=== PATIENT | male | born 1935 | race Caucasian/White ===

== ENCOUNTER 2017-07-15 22:15 | Emergency (ER) | payer OTHER, MEDICARE ==
[~2017-07-15] VITALS: Ht 175.3 cm; Wt 87.8 kg
[~2017-07-15 22:15] MED LIST: ADULT LOW DOSE81 M1 PO; CALCITRIOL0.25 MC1 NG; PRINIVIL20 MG PO; SIMVASTATIN80 MG PO; TRAMADOL HCL50 MG PO; ZANAFLEX4 M1 PO; ZYLOPRIM150 MG PO
[2017-07-16 00:08] LABS: HEMATOCRIT 39.6 % (38.0-50.0); MCH 30.9 PG (29.0-34.0); MCHC 34.1 G/DL (30.0-36.0); MCV 90.6 FL (86-99); MEAN PLAT.VOLUME 10.9 uM^3 (9.0-12.4); PLATELET COUNT 157 K/uL (156-360); RBC DIS.WIDTH-CV 14.6 % (11.8-14.6); RBC DIS.WIDTH-SD 48.5 % (39-53); RED BLOOD COUNT 4.37 M/uL (4.00-5.50); WHITE BLOOD COUNT 7.2 K/uL (4.1-10.2)
[2017-07-16 00:16] LABS: PROTHROMBIN TIME 11.4 SEC (10.2-12.9)
[2017-07-16 00:18] LABS: CHLORIDE 105 mEq/L (99-109); PTT 29.3 SEC (25-37); SODIUM 137 mEq/L (136-147)
[2017-07-16 00:19] LABS: GLUCOSE 109 mg/dL (70-99)
[2017-07-16 00:21] LABS: ANION GAP 10 MEQ/L (2-14)
[2017-07-16 00:23] LABS: GFR ESTIMATE (CALCULATED) 34 mL/min/
[2017-07-16 00:24] LABS: UREA NITROGEN (BUN) 35 mg/dL (9-23)
[2017-07-16] MEDS ORDERED: PREDNISONE20 MG PO (00:47)
[2017-07-16] MEDS ORDERED: TYLENOL WITH C1 EACH PO (00:50)
[2017-07-16 01:16] VITALS: BP 131/75
== END 2017-07-16 01:17 | disposition home or self-care (01) ==
LOC: EXP 22:15 → EME 22:15 → EXP 07-16 01:17
PROVIDERS: Physician Assistant
DX: R21 Rash and other nonspecific skin eruption (principal)
CPT/HCPCS: 80048; 85027; 85610; 85730; 99281; 99284; J7512

== ENCOUNTER 2018-02-21 11:11 | Observation (INO) | payer OTHER, MEDICARE ==
[~2018-02-21] VITALS: Ht 175.3 cm; Wt 87.0 kg
[~2018-02-21 11:11] MED LIST changes: -CALCITRIOL0.25 MC1 NG; +CALCITRIOL0.25 MCG PO; +PREDNISONE20 MG PO; +TYLENOL WITH C1 EACH PO
[2018-02-21 11:37] LABS: HEMATOCRIT 43.5 % (38.0-50.0); HEMOGLOBIN 15.1 G/DL (12.5-16.6); MCH 31.1 PG (29.0-34.0); MCHC 34.7 G/DL (30.0-36.0); MCV 89.5 FL (86-99); PLATELET COUNT 176 K/uL (156-360); RBC DIS.WIDTH-CV 14.9 % (11.8-14.6); RBC DIS.WIDTH-SD 48.6 % (39-53); RED BLOOD COUNT 4.86 M/uL (4.00-5.50); WHITE BLOOD COUNT 8.2 K/uL (4.1-10.2)
[2018-02-21 11:45] LABS: CHLORIDE 107 mEq/L (99-109); POTASSIUM 3.8 mEq/L (3.7-5.4); SODIUM 144 mEq/L (136-147)
[2018-02-21 11:47] LABS: GLUCOSE 122 mg/dL (70-99)
[2018-02-21 11:51] LABS: CREATININE 1.5 mg/dL (0.6-1.3); GFR ESTIMATE (CALCULATED) 48 mL/min/ (58.99-99999)
[2018-02-21 11:52] LABS: UREA NITROGEN (BUN) 29 mg/dL (9-23)
[2018-02-21 11:58] LABS: TROP-I INTERPRETATION NEGATIVE; TROPONIN-I 0.04 ng/mL (0.0-0.30)
[2018-02-21 13:24] LABS: APPEARANCE CLEAR ((CLEAR)); BILIRUBIN NEGATIVE; BLOOD NEGATIVE; COLOR YELLOW ((YELLOW)); GLUCOSE (STRIP) NEGATIVE; KETONES NEGATIVE; LEUKOCYTES NEGATIVE; NITRITE NEGATIVE; PROTEIN (STRIP) 100; SPECIFIC GRAVITY 1.016 (1.000-1.030); UROBILINOGEN 0.2 MG/DL (0.2-1.0)
[2018-02-21 13:26] LABS: BACTERIA NONE SEEN /HPF; EPITHELIAL CELLS NONE SEEN /HPF; MUCUS TRACE /LPF; RED BLOOD CELLS 0-5 /HPF (0-5); UCUL ADDED? NO; WHITE BLOOD CELLS 0-5 /HPF (0-5)
[2018-02-21] MEDS ORDERED: ASPIRIN81 M2 PO (13:54)
[2018-02-21] MEDS ORDERED: ZYLOPRIM100 MG PO (13:54)
[2018-02-21] MEDS ORDERED: PRAVACHOL80 MG PO (13:55)
[2018-02-21] MEDS ORDERED: DIOVAN320 MG PO (13:56)
[2018-02-21] MEDS ORDERED: NORVASC5 MG PO (13:57)
[2018-02-21] MEDS ORDERED: COLCRYS0.6 MG PO (13:57)
[2018-02-21] MEDS ORDERED: HYGROTON25 MG PO (13:58)
[2018-02-21] MEDS ORDERED: PLAVIX75 MG PO (13:58)
[2018-02-21 15:20] VITALS: BP 143/97
[2018-02-21 18:37] LABS: TROP-I INTERPRETATION NEGATIVE; TROPONIN-I 0.14 ng/mL (0.0-0.30)
[2018-02-21 23:57] VITALS: BP 136/81
[2018-02-22 01:27] LABS: TROP-I INTERPRETATION NEGATIVE; TROPONIN-I 0.13 ng/mL (0.0-0.30)
[2018-02-22 03:53] VITALS: BP 144/81
[2018-02-22 06:30] LABS: CHLORIDE 100 MEQ/L (99-109); CREATININE 1.6 MG/DL (0.6-1.3); GFR ESTIMATE (CALCULATED) 44 mL/min/ (58.99-99999); GLUCOSE 110 mg/dL (70-99); SODIUM 142 MEQ/L (136-147); UREA NITROGEN (BUN) 34 mg/dL (9-23)
[2018-02-22 08:15] VITALS: BP 164/88
[2018-02-22 12:32] VITALS: BP 124/85
[2018-02-22] MEDS ORDERED: APRESOLINE50 MG PO (16:05)
[2018-02-22] MEDS ORDERED: LEVAQUIN500 MG PO (16:05)
[2018-02-22] MEDS ORDERED: DULERA 100 MCG/13 GM IH (16:05)
== END 2018-02-22 16:59 | disposition home or self-care (01) ==
LOC: EME 11:11 → EDOF 13:22 → ENRESERV 13:34 → EDOF 13:34 → ENRESERV 13:42 → 5WEST 15:12
PROVIDERS: Emergency Medicine; Internal Medicine
DX: R06.09 Other forms of dyspnea (principal); Z77.090 Contact with and (suspected) exposure to asbestos; R91.8 Other nonspecific abnormal finding of lung field; I25.10 Atherosclerotic heart disease of native coronary artery without angina pectoris; I70.1 Atherosclerosis of renal artery; R42 Dizziness and giddiness; I12.9 Hypertensive chronic kidney disease with stage 1 through stage 4 chronic kidney disease, or unspecified chronic kidney disease; N18.3 Chronic kidney disease, stage 3 (moderate); Z95.1 Presence of aortocoronary bypass graft; Z95.5 Presence of coronary angioplasty implant and graft; E78.5 Hyperlipidemia, unspecified; Z87.442 Personal history of urinary calculi; Z79.82 Long term (current) use of aspirin
CPT/HCPCS: 71045; 71046; 71250; 80048; 81003; 84484; 85027; 93005; 94640; 99281; 99284; G0378; J1644; J1940

== ENCOUNTER 2018-02-28 14:11 | Observation (INO) | payer OTHER, MEDICARE ==
[~2018-02-28] VITALS: Ht 175.3 cm; Wt 88.0 kg
[~2018-02-28 14:11] MED LIST changes: +APRESOLINE50 MG PO; +ASPIRIN81 M2 PO; +COLCRYS0.6 MG PO; +DIOVAN320 MG PO; +DULERA 100 MCG/13 GM IH; +HYGROTON25 MG PO; +LEVAQUIN500 MG PO; +NORVASC5 MG PO; +PLAVIX75 MG PO; +PRAVACHOL80 MG PO; +ZYLOPRIM100 MG PO
[2018-02-28 14:26] LABS: BASOPHIL (%) 0.4 % (0-1); EOSINOPHIL (%) 3.6 % (0-5); EOSINOPHIL COUNT 0.3 K/uL (0-0.3); HEMATOCRIT 39.6 % (38.0-50.0); HEMOGLOBIN 13.9 G/DL (12.5-16.6); IMMATURE GRANULOCYTE (%) 0.4 % (0.0-0.7); LYMPHOCYTE (%) 11.5 % (15-42); LYMPHOCYTE COUNT 0.9 K/uL (1.0-2.8); MCH 31.4 PG (29.0-34.0); MCHC 35.1 G/DL (30.0-36.0); MCV 89.4 FL (86-99); MONOCYTE (%) 11.4 % (3-12); MONOCYTE COUNT 0.9 K/uL (0-0.8); NEUTROPHIL (%) 72.7 % (45-76); NEUTROPHIL COUNT 5.5 K/uL (1.8-6.4); PLATELET COUNT 170 K/uL (156-360); RBC DIS.WIDTH-CV 15.4 % (11.8-14.6); RBC DIS.WIDTH-SD 50.5 % (39-53); RED BLOOD COUNT 4.43 M/uL (4.00-5.50); WHITE BLOOD COUNT 7.5 K/uL (4.1-10.2)
[2018-02-28 14:33] LABS: INTER. NORMALIZED RATIO 1.1
[2018-02-28 14:35] LABS: PTT 27.6 SEC (25-37)
[2018-02-28 14:37] LABS: ALBUMIN 4.1 g/dL (3.2-4.8); CHLORIDE 103 mEq/L (99-109); POTASSIUM 3.9 mEq/L (3.7-5.4); SODIUM 139 mEq/L (136-147)
[2018-02-28 14:38] LABS: AMYLASE 35 IU/L (1-118)
[2018-02-28 14:40] LABS: GLUCOSE 123 mg/dL (70-99); TOTAL PROTEIN 6.8 g/dL (6.4-8.3)
[2018-02-28 14:42] LABS: TOTAL BILIRUBIN 0.6 mg/dL (0.0-1.0)
[2018-02-28 14:43] LABS: ALKALINE PHOSPHATASE 67 IU/L (3-129); SERUM ETHYL ALCOHOL < 10 mg/dL
[2018-02-28 14:44] LABS: CREATININE 2.3 mg/dL (0.6-1.3); GFR ESTIMATE (CALCULATED) 29 mL/min/ (58.99-99999)
[2018-02-28 14:45] LABS: AST (GOT) 22 IU/L (2-34); UREA NITROGEN (BUN) 57 mg/dL (9-23)
[2018-02-28 14:46] LABS: ALT (GPT) 20 IU/L (3-49)
[2018-02-28 14:47] LABS: LIPASE 37 U/L (1.0-51.0)
[2018-02-28 14:53] LABS: TROP-I INTERPRETATION NEGATIVE; TROPONIN-I 0.03 ng/mL (0.0-0.30)
[2018-02-28 17:08] LABS: HDL CHOLESTEROL 38 MG/DL (Desirable>=40); LDL CHOLESTEROL 40 mg/dL (Desirable<100); NON-HDL CHOLESTEROL 79 mg/dL (Desirable<160); TOTAL CHOLESTEROL 117 mg/dL (Desirable<200); TRIGLYCERIDES 197 MG/DL (Normal: <150)
[2018-02-28 19:18] VITALS: BP 161/76
[2018-02-28 19:21] VITALS: BP 152/95
[2018-02-28 21:50] LABS: APPEARANCE CLEAR ((CLEAR)); BILIRUBIN NEGATIVE; BLOOD NEGATIVE; COLOR YELLOW ((YELLOW)); GLUCOSE (STRIP) NEGATIVE; KETONES NEGATIVE; LEUKOCYTES NEGATIVE; NITRITE NEGATIVE; PROTEIN (STRIP) NEGATIVE; SPECIFIC GRAVITY 1.009 (1.000-1.030); UCUL ADDED? NO; UROBILINOGEN 0.2 MG/DL (0.2-1.0)
[2018-02-28 22:10] LABS: AMPHETAMINE NEGATIVE (500 ng/mL); BARBITURATES NEGATIVE (200 ng/mL); BENZODIAZEPINES NEGATIVE (150 ng/mL); BUPRENORPHINE NEGATIVE (10 ng/mL); COCAINE NEGATIVE (150 ng/mL); METHADONE NEGATIVE (200 ng/mL); METHAMPHETAMINE NEGATIVE (500 ng/mL); OPIATES (MORPHINE) NEGATIVE (100 ng/mL); OXYCODONE NEGATIVE (100 ng/mL); PHENCYCLIDINE NEGATIVE (25 ng/mL); PROPOXYPHENE NEGATIVE (300 ng/mL); THC CANNABINOIDS NEGATIVE (50 ng/mL); TRICYCLIC ANTIDEPRESSANTS NEGATIVE (300 ng/mL)
[2018-02-28 23:14] VITALS: BP 105/70
[2018-03-01 04:20] VITALS: BP 142/74
[2018-03-01 06:04] LABS: BASOPHIL (%) 0.6 % (0-1); EOSINOPHIL (%) 9.3 % (0-5); EOSINOPHIL COUNT 0.6 K/uL (0-0.3); HEMATOCRIT 37.9 % (38.0-50.0); HEMOGLOBIN 12.9 G/DL (12.5-16.6); IMMATURE GRANULOCYTE (%) 0.4 % (0.0-0.7); LYMPHOCYTE (%) 15.3 % (15-42); LYMPHOCYTE COUNT 1.1 K/uL (1.0-2.8); MCH 30.7 PG (29.0-34.0); MCV 90.2 FL (86-99); MONOCYTE (%) 12.5 % (3-12); MONOCYTE COUNT 0.9 K/uL (0-0.8); NEUTROPHIL (%) 61.9 % (45-76); NEUTROPHIL COUNT 4.3 K/uL (1.8-6.4); PLATELET COUNT 168 K/uL (156-360); RBC DIS.WIDTH-CV 15.5 % (11.8-14.6); RBC DIS.WIDTH-SD 50.3 % (39-53); WHITE BLOOD COUNT 6.9 K/uL (4.1-10.2)
[2018-03-01 06:29] LABS: ALBUMIN 3.8 G/DL (3.2-4.8); ALKALINE PHOSPHATASE 53 IU/L (3-129); ALT (GPT) 16 IU/L (3-49); AST (GOT) 16 IU/L (2-34); CHLORIDE 105 MEQ/L (99-109); CREATININE 1.9 MG/DL (0.6-1.3); DIRECT BILIRUBIN 0.1 mg/dL (0.0-0.3); GFR ESTIMATE (CALCULATED) 36 mL/min/ (58.99-99999); GLUCOSE 106 mg/dL (70-99); POTASSIUM 4.1 MEQ/L (3.7-5.4); SODIUM 140 MEQ/L (136-147); TOTAL BILIRUBIN 0.5 MG/DL (0.0-1.0); TOTAL PROTEIN 5.9 G/DL (6.4-8.3); UREA NITROGEN (BUN) 50 mg/dL (9-23)
[2018-03-01 07:35] VITALS: BP 154/76
[2018-03-01 08:19] LABS: HEMOGLOBIN A1c (GLYCOHEMOGLOB) 6.2 % (Below 5.7)
[2018-03-01 09:51] VITALS: BP 132/76
[2018-03-01 12:03] VITALS: BP 135/76
[2018-03-01] MEDS ORDERED: LEVAQUIN500 MG PO (12:31)
[2018-03-01] MEDS ORDERED: PROAIR RESPICL90 MCG IH (12:31)
== END 2018-03-01 15:53 | disposition home or self-care (01) ==
LOC: EME → EDBD 14:11 → EDOF 16:33 → ENRESERV 16:49 → 5WEST 17:51
PROVIDERS: Emergency Medicine; Internal Medicine
DX: N17.9 Acute kidney failure, unspecified (principal); I95.9 Hypotension, unspecified; R00.2 Palpitations; R42 Dizziness and giddiness; I12.9 Hypertensive chronic kidney disease with stage 1 through stage 4 chronic kidney disease, or unspecified chronic kidney disease; N18.9 Chronic kidney disease, unspecified; E78.5 Hyperlipidemia, unspecified; I25.10 Atherosclerotic heart disease of native coronary artery without angina pectoris; Z95.1 Presence of aortocoronary bypass graft; I70.1 Atherosclerosis of renal artery; Z90.5 Acquired absence of kidney; Z87.01 Personal history of pneumonia (recurrent); Z77.090 Contact with and (suspected) exposure to asbestos; Z79.82 Long term (current) use of aspirin; Z79.02 Long term (current) use of antithrombotics/antiplatelets
CPT/HCPCS: 70450; 71045; 80048; 80053; 80061; 80076; 81003; 82150; 82436; 82570; 83036; 83690; 84133; 84300; 84484; 85025; 85610; 85730; 86850; 86900; 86901; 93005; 94640; 94640 76; G0378; G0480; J1644; J7030